=== PATIENT | male | born 1950 | race Caucasian/White ===

== ENCOUNTER → 2018-11-13 | Outpatient (CLI) | payer MEDICARE, OTHER ==
--- NOTE | 2018-11-13 18:32 | CT ---
EXAMINATION TYPE: CT shoulder RT wo con DATE OF EXAM: 11/13/2018 COMPARISON: None HISTORY: Right shoulder pain CT DLP: 350 mGycm Automated exposure control for dose reduction was used. TECHNIQUE: Axial images at 2 mm thick sections. Reconstructed images in the coronal and sagittal plan es. 3-D reconstructed images performed on a separate computer by the technologist are presented. FINDINGS: Osteoarthritic degenerative changes at the lateral humeral junction. There is loss of joint space. Hu meral head spurring is present. No elevation of the humerus in relation to the acromion is evident. T here is acromioclavicular joint hypertrophy. No acute fractures are evident. There appears to be complete loss of the anterior articular cartilage within the glenohumeral joint space. Calcification is noted within the joint space anteriorly. Small joint effusion may be present. Portion of the right apex within the field of view appears clear IMPRESSION: 1. ADVANCED OSTEOARTHRITIC DEGENERATIVE CHANGE RIGHT SHOULDER. 2. THERE ARE SOME DEGENERATIVE CHANGES AT THE ACROMION. 3. NO OBVIOUS ROTATOR CUFF TEAR IDENTIFIED. 4. SUSPECTED EFFUSION. SOME INTRA-CAPSULAR ILL-DEFINED CALCIFICATIONS ARE PRESENT ANTERIORLY.
== END ==
LOC: RADCTMAIN 11:59
PROVIDERS: ATTEND Orthopaedic Surgery Sports Medicine
DX: Z01.818 Encounter for other preprocedural examination (principal); M19.011 Primary osteoarthritis, right shoulder; R93.7 Abnormal findings on diagnostic imaging of other parts of musculoskeletal system; M25.811 Other specified joint disorders, right shoulder

== ENCOUNTER → 2018-12-29 | Outpatient (CLI) | payer MEDICARE, OTHER | END | disposition home or self-care (01) | LOC: LABWHC1 14:18 | PROVIDERS: ATTEND Orthopaedic Surgery Sports Medicine | DX: Z01.812 Encounter for preprocedural laboratory examination (principal) | CPT/HCPCS: 87070 ==

== ENCOUNTER 2019-01-06 14:29 | Inpatient (IN) | payer MEDICARE, OTHER ==
[2019-01-05 08:44] VITALS: BMI 28.1
[~2019-01-06 14:29] MED LIST: ACETAMINOPHEN TAB 500 MG TAB PO ONE; DEXAMETHASONE SOD PHOSPHATE 10 MG/ML 1 ML VIAL IV ONE; GABAPENTIN 300 MG CAP PO ONE; HYDROmorphone 0.5 MG/0.5 ML SYRINGE IVP PRN; MELOXICAM 7.5 MG TAB PO ONE; MIDAZOLAM 2 MG/2 ML VIAL IV PRN; ONDANSETRON 4 MG/2 ML VIAL IVP ONE; TRANEXAMIC ACID 1,000 MG in SODIUM CHLORIDE 0.9% 100 ML IVPB ONE
[2019-01-06] MEDS: LACTATED RINGERS 1,000 ML IV SCH ×3 (15:31→20:01)
--- NOTE | 2019-01-06 15:37 | P.ANPRN ---
Procedure Note - Anesthesia - Nerve Block Performed Right Interscalene Single Time Out Performed: Yes Date of Procedure: 01/06/19 Procedure Start Time: 15:20 Procedure Stop Time: 15:24 Location of Patient: PreOp Indication: Acute Post-Operative Pain, Analgesia, Requested by Surgeon Sedation Type: Sedate with meaningful contact maintained Preparation: Sterile Prep Position: Supine Catheter: None Needle Types: Pajunk Needle Gauge: 21 Ultrasound used to visualize needle placement: Yes Ultrasound used to observe medication spread: Yes Injectate: 0.5% Ropivacaine (see comment for volume) (20cc with 4mg dexamethasone) Blood Aspirated: No Pain Paresthesia on Injection Noted: No Resistance on Injection: Normal Image Stored and Saved: Yes Events: Uneventful and Well Tolerated
[2019-01-06] MEDS ORDERED: PHENYLEPHRINE-0.9% NACL SYG 1 MG/10 ML SYRINGE ONE (15:39)
[2019-01-06] MEDS ORDERED: SUCCINYLCHOLINE CHLORIDE 100 MG/5 ML SYR IV ONE (15:39)
[2019-01-06] MEDS ORDERED: NEOSTIGMINE 1 MG/ML 10 ML VIAL ONE (15:39)
[2019-01-06] MEDS ORDERED: ePHEDrine SULFATE/0.9% NACL/PF 50 MG/5 ML SYRINGE IV ONE (15:39)
[2019-01-06] MEDS ORDERED: LIDOCAINE 1% INJ 10MG/ML (20 ML MDV) ONE (15:39)
[2019-01-06] MEDS ORDERED: DEXAMETHASONE SOD PHOSPHATE 4 MG/ML 1 ML VIAL ONE (15:39)
[2019-01-06] MEDS ORDERED: GLYCOPYRROLATE 0.2 MG/ML 2 ML VIAL ONE (15:39)
[2019-01-06] MEDS ORDERED: ROCURONIUM BROMIDE 10 MG/ML 10 ML VIAL IV ONE (15:39)
[2019-01-06] MEDS ORDERED: PROPOFOL 10 MG/ML 20 ML VIAL IV ONE (15:39)
[2019-01-06] MEDS ORDERED: ROPIVACAINE 5 MG/ML 30 ML VIAL ONE (15:39)
[2019-01-06] MEDS ORDERED: TRANEXAMIC ACID 1,000 MG/10 ML VIAL ONE (15:39)
[2019-01-06] MEDS ORDERED: SODIUM CHLORIDE 0.9% 100 ML BAG ONE (15:39)
[2019-01-06] MEDS ORDERED: LACTATED RINGERS 1,000 ML IV ONE ×2 (15:43→17:14)
[2019-01-06 15:44] LABS: Appearance,Urine Clear (Clear); Bilirubin,Urine Negative (Negative); Blood,Urine Negative (Negative); Color,Urine Yellow; Glucose,Urine (UA) Negative (Negative); Ketones,Urine Negative (Negative); Leukocyte Esterase,Urine Negative (Negative); Nitrite,Urine Negative (Negative); Protein,Urine Negative (Negative); Specific Gravity,Urine 1.022 (1.001-1.035); Urobilinogen,Urine <2.0 mg/dL (<2.0)
[2019-01-06] MEDS ORDERED: VANCOMYCIN 1,000 MG VIAL MISCELLANE ONE (17:40)
[2019-01-06] MEDS ORDERED: ceFAZolin 3,000 MG in SODIUM CHLORIDE 0.9% IRRIGATIO 3,000 ML IRRIGATION ONE (17:59)
[2019-01-06] MEDS ORDERED: diphenhydrAMINE 25 MG CAP PO PRN (18:17)
[2019-01-06] MEDS ORDERED: METOCLOPRAMIDE 5 MG/ML 2 ML VIAL IVP PRN (18:17)
[2019-01-06] MEDS ORDERED: TEMAZEPAM 15 MG CAP PO PRN (18:17)
[2019-01-06] MEDS ORDERED: HYDROmorphone 0.5 MG/0.5 ML SYRINGE IVP PRN ×3 (18:17)
[2019-01-06] MEDS ORDERED: hydrOXYzine PAMOATE 25 MG CAP PO PRN (18:17)
[2019-01-06] MEDS ORDERED: SENNOSIDES-DOCUSATE SODIUM 1 EACH TAB PO PRN (18:17)
[2019-01-06] MEDS ORDERED: HYDROcodone/APAP 10-325MG 1 EACH TAB PO PRN ×2 (18:21)
--- NOTE | 2019-01-06 19:08 | XR ---
EXAMINATION TYPE: XR shoulder limited RT DATE OF EXAM: 01/06/2019 COMPARISON: NONE HISTORY: Postop shoulder surgery TECHNIQUE: Single view FINDINGS: There is right shoulder prosthesis. Components are in anatomic position. IMPRESSION: No complicating process seen.
[2019-01-07] MEDS: LACTATED RINGERS 1,000 ML IV SCH (03:51)
--- NOTE | 2019-01-07 07:44 | OP ---
OPERATIVE REPORT DATE OF PROCEDURE: 01/06/2019. SURGEON: Estevan Bey M.D. IMMUNOPATHOLOGIST: John GARSIA. PREOPERATIVE DIAGNOSIS: Right shoulder osteoarthrosis. POSTOPERATIVE DIAGNOSIS: Right shoulder osteoarthrosis. OPERATION PERFORMED: Right total shoulder arthroplasty. ANESTHESIA: General endotracheal. ESTIMATED BLOOD LOSS: 300 mL. DRAINS: 1 deep drain. COMPLICATIONS: None apparent. DISPOSITION: Postanesthesia care unit. INDICATIONS: Mr. Doran is a very pleasant 68-year-old gentleman with long-standing right shoulder pain. Workup including x-rays revealed advanced osteoarthrosis of the right shoulder. At this point, he feels as if he has failed conservative management and would like to proceed with operative intervention. Risks of procedure were discussed with him in detail. These risks include, but are not limited to risk of infection, nerve damage, bleeding, pain, instability in the shoulder, loosening of the implants and deep infection. There is also risk of deep vein thrombosis which could lead to fatal pulmonary embolism. The patient understood the risks. All of his questions with regards to the risks of the procedure were answered to his satisfaction. Appropriate informed consent was obtained. DESCRIPTION OF PROCEDURE: Patient identified in preoperative holding area. Surgical sites marked by both the patient and myself. He was given 2 g of Ancef IV for prophylactic purposes. He was then transferred to the operative suite. He was placed supine on the operative table. A general anesthetic was then administered, dosed per the anesthesia department without apparent complication. Examination under anesthesia was then performed of the right shoulder. He had elevation to 130 degrees. External rotation at the side was to 30 degrees. The patient was placed into the beach chair position well-padded in preparation for surgery. Great care was taken to ensure that his cervical spine was in neutral alignment well-padded and maintained that way throughout the operative procedure. Great care was also taken to ensure that his legs were appropriately padded as well. The patient's right upper extremity was then prepped and draped in usual sterile fashion. Standard surgical pause undertaken to ensure that we were operating on the correct site and that appropriate preop antibiotics were given. All staff in the room in agreement and we proceeded. A planned incision starting at the level of the clavicle and extending distally over the deltopectoral interval approximately 1 cm lateral to the coracoid was marked with a surgical pen. The incision was then made with a 10 blade scalpel. Dissection carried down sharply to the deltoid fascia. The deltopectoral interval was identified at the level of the clavicle. A small band retractor was then placed onto the proximal deltoid. I then released the deltoid fascia on the lateral aspect of the cephalic vein. The vein was preserved and left in its bed medially. The cephalic vein was protected throughout the entire case. I then identified the clavipectoral fascia. It was incised proximally to the level of the coracoacromial ligament. The coracoacromial ligament was left intact. I then used my finger to spread the interval between the conjoint tendon and the subscapularis. I felt for the axillary nerve which was readily palpable. I then cleared the subacromial subdeltoid spaces of bursal and scar tissue. I then utilized a Quintana retractor to hold the deltoid and expose the humeral head. I then proceeded to release the subscapularis in the anterior inferior shoulder capsule. The rotator cuff was inspected. It was found to be intact. The rotator interval was identified. The course of the biceps tendon was also identified. I then released the rotator interval. It was released at the base of the coracoid and then out laterally. The subscapularis and the capsule were then released intratendinously. The subscapularis and capsule release extended distally in a lazy-S fashion approximately 1 cm medial to the biceps tendon. I then continued to release the capsule along the inferior neck in a vertical fashion to approximately the 6 o'clock position. Great care was taken to ensure that the capsule was always visualized as it released to avoid injuring the axillary nerve. Then brought the Brown speedometer inspector with the arm externally rotated and abducted. I continued to release the capsule inferomedially to the 4 o'clock position. The inferior osteophytes were now removed as well. This was done with a rongeur. I then proceeded with the preparation of the humerus. I removed all the goat's manzanares osteophytes. I then removed the subchondral plate from the superior aspect of the humeral head utilizing a large rongeur. I then utilized a starting reamer to gain access to the humeral canal. This was approximately 1 cm medial to the rotator cuff insertion and 1 cm posterior to the bicipital groove. I then prepared the humeral canal with hand reaming. I started with a 6 mm reamer and progressed incrementally in 1 mm increments until firm resistance was encountered. This was at 14 mm. The reamer handle was then left in place. I then utilized a humeral resection guide set at 30 degrees of retrotorsion. The cutting block was set approximately 1-2 mm above the insertion of the rotator cuff. I then proceeded to osteotomize the head with an oscillating saw. I removed the resection guide and then completed the osteotomy. I then proceeded with trial stem placement. I then broached the humeral canal starting with an 8 mm broach up to a 14 mm broach. The 14 mm trial stem was then left in place. I then proceeded with a trial reduction. I started with a 46 x 19 head. This seemed a little loose. I then increased to 46 x 21 x 50 head which seemed to fit very nicely. The head fit opposite the glenoid. The rotator cuff was not tented. Internal rotation was to 90 degrees. The elevation was 150 degrees and translation was 1/2 of the head in neutral rotation and 1/4 of the head inferiorly in 15-20 degrees of abduction. I then removed the trial head. The stem was then left in place. I then proceeded with exposure of the glenoid. At this point, I did release the biceps tendon. This was tenotomized at the level of the superior labrum. A bone hook was then used to pull the humerus out laterally. I then dissected the joint for loose bodies. He had multiple ostial cartilaginous loose bodies. At least 5. The largest was approximately 1/2 to 2 cm in diameter. These were in the subscapularis recess as well. The condition of the rotator cuff was again inspected. It was in excellent condition. The Bhattman retractor was then placed onto the posterior glenoid reamer. The arm was placed in approximately 80 degrees of abduction and in slight flexion on a Brown stand. I then proceeded to remove the hypertrophic labrum to definitively identify the actual glenoid. I then selected the size of the glenoid. A large size glenoid seemed to fit very nicely. I then utilized a starting drill to make the centering hole. I then proceeded to ream the glenoid fossa. This was done with a large size reamer. Very minimal reaming was done to preserve as much subcarinal bone as possible. There was a tiny bit of posterior and inferior loss. I preferentially took off slightly more anterior glenoid with the reaming. I then proceeded to place the glenoid drill holes. The peripheral drill holes were then placed and the center hole was also drilled as well. I then placed a trial size large glenoid and it fit very nicely onto the glenoid component and it fit very nicely onto the real glenoid. I then proceed with cementing. I [place] the wound in the bone. The drill holes were then packed with [employer] sponges. The cement was then mixed on the back table by the case management assistant. Drill holes were then packed with cement utilizing a 20 mL syringe. These were packed very tightly. A small amount of cement was then placed on the posterior aspect of the glenoid component. I then impacted the real glenoid component in place. It was a Biomet large-sized pegged glenoid component with Regenerex central peg. Excess cement was removed utilizing a [place] elevator. Pressure was held on the glenoid component until the cement had hardened. Then, removed the Bhattman retractor. I then proceeded with humeral component trial reduction with the glenoid. A 46 x 19 x 50 head was then placed back onto the stem. This was taken through a trial. This seemed a little loose. I then trialed with a 46 x 21 x 50 head. This fit very nicely. The rotator cuff was not tented. The elevation was 150 degrees, internal rotation at 90 degrees and translation was 1/2 of the head in neutral rotation, 1/4 the head in 15-20 degrees of abduction. I then had the community service representative open a 46 x 21 x 50 real head and a size 14 Biomet mini stem. The stem was then impacted into the canal in 30 degrees of retrotorsion. The real head was then impacted onto the stem. The shoulder was then reduced. I then proceeded with closure. The wound was again thoroughly irrigated with sterile saline solution with antibiotic added. The rotator interval was closed very tightly with #1 coated Vicryl. The subscapularis was then repaired with #2 interrupted FiberWire suture. Deep drain was then placed and brought out superiorly away from the incision. The wound was again thoroughly irrigated with sterile saline solution with antibiotic added. Approximately 500 mg of vancomycin powder was then placed deep. The deltopectoral interval was then closed with interrupted 0-Vicryl suture. The wound was again thoroughly irrigated with sterile saline solution with antibiotic added. The remaining 500 mg of vancomycin powder was then placed subcutaneously. The subcutaneous tissue was closed with 2-0 Vicryl interrupted suture. The skin was closed with a running 3-0 Quill suture. Dermabond was then applied to the incision. Sterile compressive dressing was then applied. The patient's right upper extremity was placed into a cyst and a shoulder immobilizer. All sponge and needle counts were deemed correct prior to closure. The patient tolerated procedure without apparent complication. He was transferred recovery room in stable condition. MMODL / IJN: [id number] /
[2019-01-07 08:04] VITALS: BP 114/73; PULSE 79; RESP 16; TEMP 97.5
[2019-01-07 08:13] LABS: Basophils % (A) 0 %; Eosinophils % (A) 0 %; HCT 44.9 % (39.0-53.0); HGB 14.8 gm/dL (13.0-17.5); Lymphocytes # (A) 0.7 k/uL (1.0-4.8); Lymphocytes % (A) 6 %; MCH 31.1 pg (25.0-35.0); MCHC 33.1 g/dL (31.0-37.0); Mean Platelet Volume 6.5; Monocytes # (A) 0.7 k/uL (0-1.0); Monocytes % (A) 6 %; Neutrophils # (A) 10.2 k/uL (1.3-7.7); Neutrophils % (A) 87 %; Platelet Count 257 k/uL (150-450); RBC 4.78 m/uL (4.30-5.90); RDW 12.8 % (11.5-15.5); WBC 11.7 k/uL (3.8-10.6)
--- NOTE | 2019-01-07 10:12 | P.DS ---
Providers Date of admission: 01/06/19 14:29 Expected date of discharge: 01/07/19 Attending physician: Estevan Bey Consults: 01/06/19 18:17 Consult Physician Routine Consulting Provider: Domingo Justice Consult Reason/Comments: post op medical management Do you want consulting provider notified?: Yes Primary care physician: Antione Mayeseldor - Discharge Diagnosis(es) (1) Primary osteoarthritis, right shoulder Current Visit: Yes Status: Acute (2) Status post total replacement of right shoulder Current Visit: Yes Status: Acute Hospital Course: This is a 68-year-old male who has history of severe degenerative arthritis of the right shoulder and presented to discuss surgical options. After discussion and consideration the patient elects to proceed with total shoulder arthroplasty. The pt is seen preoperatively by their family physician and cleared for surgery. The patient is admitted to [facility] on 01/06/2019 for total right shoulder arthroplasty by Dr. Estevan Bey. He is doing well postopera tively. Vital signs and hemoglobin are stable. The patient is able to get up out of bed independently and is ambulating without assistance. Pain is well controlled. The patient was seen and evaluated at bedside today and denies any new complaints. Dressing is clean dry and intact. Incision looks fine with no erythema or active drainage. Hemovac removed without difficulty. Arm is soft and nontender. The patient has full wrist and hand motion without difficulty. Patient's right upper extremity is neurovascular intact. Patient is orthopedically stable for discharge to home today. Please see med rec for accurate list of home medications. Pertinent Studies: Laboratory Tests 01/07/19 07:23 WBC 11.7 H RBC 4.78 Hgb 14.8 Neutrophils # 10.2 H Lymphocytes # 0.7 L Patient Condition at Discharge: Stable Plan - Discharge Summary Discharge Rx Participant: Yes New Discharge Prescriptions: New Docusate [Colace] 100 mg PO BID #60 capsule HYDROcodone/APAP 10-325MG [[place] 10-325] 1 - 2 tab PO Q4-6H PRN #50 tab PRN Reason: Pain No Action Glucosamine-Chondr 500-400Mg 1 each PO DAILY Ascorbic Acid [Vitamin C] 500 mg PO DAILY Saw Effort 160 mg PO DAILY Discharge Medication List Ascorbic Acid [Vitamin C] 500 mg PO DAILY 01/05/19 [History] Glucosamine-Chondr 500-400Mg 1 each PO DAILY 01/05/19 [History] Saw Eff[place] 160 mg PO DAILY 01/05/19 [History] Docusate [Colace] 100 mg PO BID #60 capsule 01/07/19 [Rx] HYDROcodone/APAP 10-325MG [[place] 10-325] 1 - 2 tab PO Q4-6H PRN #50 tab 01/07/19 [Rx] Follow up Appointment(s)/Referral(s): Estevan Bey MD [STAFF PHYSICIAN] - 10 Days Activity/Diet/Wound Care/Special Instructions: Sling for comfort. Daily dressing changes, keep incision clean and dry May shower over incision in 2 days after surgery. Follow up with Dr. Bey in 10 days. Call [facility] with questions or concerns [phone] Discharge Disposition: HOME WITH HOME HEALTH SERVICES
--- NOTE | 2019-01-07 22:34 | P.CONS ---
History of Present Illness - Reason for Consult Consult date: 01/07/19 Medical management Requesting physician: Estevan Bey - Chief Complaint Right shoulder pain - History of Present Illness Consultation: This is a very pleasant 68-year-old patient of Dr. Spenser Olmstead. Patient is at chronic right shoulder pain for a long time getting progressively worse. Worse with activity. Better with rest. Patient has tried conservative management including physical therapy and manipulative therapy. Did not help. Her symptoms were getting worse and decided to proceed with surgery. Patient has undergone right total shoulder arthroplasty. Pain is better this morning with pain medication. Good sensation in the fingers. No nausea vomiting. Denies any cardiac history. Did tolerate his breakfast. Review of systems: GEN.: None EYES: None HEENT: None NECK: None RESPIRATORY: None CARDIOVASCULAR: None GASTROINTESTINAL: None GENITOURINARY: None MUSCULOSKELETAL: Joint pains LYMPHATICS: None HEMATOLOGICAL: None PSYCHIATRY: None NEUROLOGICAL: None Social history: Patient does smoke in the past. Alcohol occasionally. . His a golf pro and also teaches golf. Physical examination: VITAL SIGNS: 97.5, 69, 16, 11 4/73, 96% room air GENERAL: BMI 29.2, sitting up in a chair, comfortable. EYES: Pupils equal. Conjunctiva normal. HEENT: External appearance of nose and ears normal, oral cavity grossly normal. NECK: JVD not raised; masses not palpable. HEART: First and second heart sounds are normal; no edema. LUNGS: Respiratory rate normal; clear to auscultation. ABDOMEN: Soft, nontender, liver spleen not palpable, no masses palpable. PSYCH: Alert and oriented x3; mood and affect normal. NEUROLOGICAL: Cranial nerves grossly intact; no facial asymmetry, power and sensation grossly intact. LYMPHATICS: No lymph nodes palpable in the axilla and neck MUSCULAR skeletal: Right arm in a sling. Sensation and motion presented to the right hand. Dressing over the right shoulder Investigations: -White count 11.7 hemoglobin 14.8 platelets 257 UA negative Assessment: -Right total shoulder arthroplasty -Primary osteoarthritis -Leukocytosis, likely reactive, no clinical evidence of infection Plan: Patient's pain is controlled. Doing well. Should follow-up with his PCP or discharge. Care was discussed with the patient. Questions were answered. Thank you Dr. Bey Past Medical History Past Medical History: Hyperlipidemia, Hypertension, Osteoarthritis (OA) Additional Past Medical History / Comment(s): KIDNEY STONE History of Any Multi-Drug Resistant Organisms: None Reported Past Surgical History: Adenoidectomy, Tonsillectomy Additional Past Surgical History / Comment(s): COLONOSCOPY X2, Right total shoulder- 01-06-2019 Past Anesthesia/Blood Transfusion Reactions: No Reported Reaction Past Psychological History: No Psychological Hx Reported Smoking Status: Former smoker Past Alcohol Use History: Occasional Additional Past Alcohol Use History / Comment(s): STARTED SMOKING AT AGE 15 QUIT IN 1985 SMOKED 1/2PPD Past Drug Use History: None Reported - Past Family History Mother Family Medical History: Dementia Sister(s) Family Medical History: Cancer Additional Family Medical History / Comment(s): PANCREAS- CANCER Father Family Medical History: Cancer Additional Family Medical History / Comment(s): LUNG AND KIDNEY CANCER Medications and Allergies Home Medications Medication Instructions Recorded Confirmed Type Ascorbic Acid [Vitamin C] 500 mg PO DAILY 01/05/19 01/05/19 History Glucosamine-Chondr 500-400Mg 1 each PO DAILY 01/05/19 01/05/19 History Saw [place] 160 mg PO DAILY 01/05/19 01/05/19 History Docusate [Colace] 100 mg PO BID #60 capsule 01/07/19 Rx HYDROcodone/APAP 10-325MG [[place] 1 - 2 tab PO Q4-6H PRN #50 tab 01/07/19 Rx 10-325] Allergies Allergy/AdvReac Type Severity Reaction Status Date / Time No Known Allergies Allergy Verified 01/06/19 14:38 Physical Exam Vitals: Vital Signs Temp Pulse Pulse Resp BP BP Pulse Ox 01/07/19 07:15 97.5 F L 79 16 114/73 96 01/07/19 00:10 97.4 F L 107 H 15 121/88 95 01/06/19 22:10 97.5 F L 109 H 137/81 94 L 01/06/19 21:39 111 H 143/96 91 L 01/06/19 21:24 92 146/98 93 L 01/06/19 21:08 105 H 142/96 92 L 01/06/19 20:40 117 H 146/90 91 L 01/06/19 20:24 99 149/95 91 L 01/06/19 20:08 93 144/89 90 L 01/06/19 19:01 77 18 144/84 94 L 01/06/19 18:46 77 18 141/84 95 01/06/19 18:31 76 18 140/84 93 L 01/06/19 18:14 97.1 F L 78 14 137/80 96 01/06/19 14:49 98.0 F 68 17 168/86 98 Intake and Output 01/06/19 01/07/19 01/07/19 22:59 06:59 14:59 Intake Total 2231 960 Output Total 300 Balance 1931 960 Intake: IV 1751 Oral 480 960 Output: Estimated Blood Loss 300 Other: Voiding Method Toilet Toilet Toilet # Voids 2 2 Weight 84.453 kg Results CBC & Chem 7: 01/07/19 07:23 Labs: Abnormal Lab Results - Last 24 Hours (Table) 01/07/19 Range/Units 07:23 WBC 11.7 H (3.8-10.6) k/uL Neutrophils # 10.2 H (1.3-7.7) k/uL Lymphocytes # 0.7 L (1.0-4.8) k/uL
== END 2019-01-07 12:45 | disposition home or self-care (01) | DRG 483 ==
LOC: 2ORMAIN 14:29 → 4SSUR 18:55
PROVIDERS: ADMIT Orthopaedic Surgery Sports Medicine; ATTEND Orthopaedic Surgery Sports Medicine
PROC: 0RRJ0JZ Replacement of Right Shoulder Joint with Synthetic Substitute, Open Approach (ICD-10-PCS; principal; 2019-01-06 16:05)
DX: M19.011 Primary osteoarthritis, right shoulder (principal); M75.121 Complete rotator cuff tear or rupture of right shoulder, not specified as traumatic; M75.41 Impingement syndrome of right shoulder; M65.811 Other synovitis and tenosynovitis, right shoulder; D72.829 Elevated white blood cell count, unspecified; E78.5 Hyperlipidemia, unspecified; I10 Essential (primary) hypertension; R35.1 Nocturia; R97.20 Elevated prostate specific antigen [PSA]; Z79.899 Other long term (current) drug therapy; Z87.442 Personal history of urinary calculi; Z87.891 Personal history of nicotine dependence; Z98.890 Other specified postprocedural states; Z88.4 Allergy status to anesthetic agent; Z81.8 Family history of other mental and behavioral disorders; Z80.51 Family history of malignant neoplasm of kidney; Z80.1 Family history of malignant neoplasm of trachea, bronchus and lung; Z80.0 Family history of malignant neoplasm of digestive organs; Z82.49 Family history of ischemic heart disease and other diseases of the circulatory system
CPT/HCPCS: 64415; 81003; 85025; 88300

== ENCOUNTER → 2021-02-05 | Outpatient (CLI) | payer MEDICARE, OTHER ==
[2021-02-05 14:58] LABS: HCT 44.9 % (39.0-53.0); HGB 14.7 gm/dL (13.0-17.5); MCH 31.9 pg (25.0-35.0); MCHC 32.7 g/dL (31.0-37.0); MCV 97.3 fL (80.0-100.0); Mean Platelet Volume 7.4; Platelet Count 216 k/uL (150-450); RBC 4.62 m/uL (4.30-5.90); RDW 12.8 % (11.5-15.5); WBC 4.5 k/uL (3.8-10.6)
[2021-02-05 15:11] LABS: Total Bilirubin 1.5 mg/dL (0.2-1.3); Total Protein 6.9 g/dL (6.3-8.2)
[2021-02-05 15:45] LABS: Partial Thromboplastin Time 24.7 sec (22.0-30.0)
[2021-02-05 15:57] LABS: Appearance,Urine Clear (Clear); Bilirubin,Urine Negative (Negative); Blood,Urine Negative (Negative); Color,Urine Yellow; Glucose,Urine (UA) Negative (Negative); Ketones,Urine Negative (Negative); Leukocyte Esterase,Urine Negative (Negative); Nitrite,Urine Negative (Negative); Protein,Urine Negative (Negative); Specific Gravity,Urine 1.018 (1.001-1.035); Urobilinogen,Urine <2.0 mg/dL (<2.0)
== END | disposition home or self-care (01) ==
LOC: LABPAT 13:47
PROVIDERS: ATTEND Orthopaedic Surgery
DX: Z01.812 Encounter for preprocedural laboratory examination (principal); M16.12 Unilateral primary osteoarthritis, left hip
CPT/HCPCS: 36415; 80053; 81003; 85027; 85610; 85730; 87070

== ENCOUNTER 2021-02-13 05:39 | Day surgery (SDC) | payer MEDICARE, OTHER ==
[2021-02-06 10:53] VITALS: BMI 26.6
[~2021-02-13 05:39] MED LIST changes: -ACETAMINOPHEN TAB 500 MG TAB PO ONE; +ACETAMINOPHEN TAB 500 MG TAB PO PRN; -DEXAMETHASONE SOD PHOSPHATE 10 MG/ML 1 ML VIAL IV ONE; -GABAPENTIN 300 MG CAP PO ONE; +GABAPENTIN 300 MG CAP PO PRN; -HYDROmorphone 0.5 MG/0.5 ML SYRINGE IVP PRN; -MELOXICAM 7.5 MG TAB PO ONE; +MELOXICAM 7.5 MG TAB PO PRN; -MIDAZOLAM 2 MG/2 ML VIAL IV PRN; -ONDANSETRON 4 MG/2 ML VIAL IVP ONE; -TRANEXAMIC ACID 1,000 MG in SODIUM CHLORIDE 0.9% 100 ML IVPB ONE; +TRANEXAMIC ACID 1,000 MG in SODIUM CHLORIDE 0.9% 100 ML IVPB PRN
[2021-02-13] MEDS ORDERED: LACTATED RINGERS 1,000 ML IV SCH (05:45)
[2021-02-13] MEDS ORDERED: DEXAMETHASONE SOD PHOSPHATE 4 MG/ML 1 ML VIAL IV ONE (05:45)
[2021-02-13] MEDS ORDERED: ONDANSETRON 4 MG/2 ML VIAL IVP ONE ×2 (05:45→10:28)
[2021-02-13] MEDS ORDERED: TRANEXAMIC ACID 1,000 MG/10 ML VIAL ONE (07:05)
[2021-02-13] MEDS ORDERED: PROPOFOL 10 MG/ML 20 ML VIAL IV ONE (07:05)
[2021-02-13] MEDS ORDERED: ROCURONIUM 10 MG/ML (5 ML VIAL) IV ONE (07:05)
[2021-02-13] MEDS ORDERED: fentaNYL (PF) 50 MCG/ML 2 ML AMP ONE (07:05)
[2021-02-13] MEDS ORDERED: SUCCINYLCHOLINE CHLORIDE 100 MG/5 ML SYR IV ONE (07:05)
[2021-02-13] MEDS ORDERED: GLYCOPYRROLATE 0.2 MG/ML 2 ML VIAL ONE (07:05)
[2021-02-13] MEDS ORDERED: SODIUM CHLORIDE 0.9% 100 ML BAG ONE (07:05)
[2021-02-13] MEDS ORDERED: NEOSTIGMINE 1 MG/ML 10 ML VIAL ONE (07:05)
[2021-02-13] MEDS ORDERED: KETOROLAC 15 MG/ML 1 ML VIAL ONE (07:05)
[2021-02-13] MEDS ORDERED: MIDAZOLAM 2 MG/2 ML VIAL ONE (07:05)
[2021-02-13] MEDS ORDERED: HYDROmorphone (PF) 1 MG/ML ONE (07:05)
[2021-02-13] MEDS ORDERED: ROPIVACAINE 5 MG/ML 30 ML VIAL MISCELLANE ONE ×2 (07:33→08:16)
--- NOTE | 2021-02-13 08:25 | P.OP ---
Date of Procedure: 02/13/21 Preoperative Diagnosis: Severe Osteoarthritis left hip Postoperative Diagnosis: Severe osteoarthritis left hip Procedure(s) Performed: Total of arthroplasty with a direct anterior approach Implants: [employer] Nephew Polarstem standard size 5 Web[employer] Nephew R3, 3 hole hemispherical acetabular shell, 52 mm Web[employer]hew Reflection 6.5 mm cancellus screw, 20 mm 2 [employer]hew R3, XLPE 20 acetabular liner Web[employer] Nephew Oxinium femoral head 36 m, +8 All components were press-fit. The articulation is Oxinium on polyethylene. Anesthesia: GETA Surgeon: Carlos Ricks Packing And Wrapping Supervisor #1: Chiara Hoffman Estimated Blood Loss (ml): 500 Pathology: other (Femoral head) Condition: stable Disposition: PACU Indications for Procedure: After failure of conservative treatment we discussed the surgical and nonsurgical treatment options at length. Patient wishes to proceed with a total hip arthroplasty with a direct anterior approach. Complications specific to this procedure were discussed at length, including but not limited to infection, leg length discrepancy, dislocation, nerve injury, and fracture. Covid-19 was also discussed at length with the patient, and they are aware of the current policies and procedures. The patient was given the option of delaying surgery, but they elect to proceed knowing these risks. Patient is aware of all these complications and informed consent was obtained Operative Findings: The operative findings are consistent with severe osteoarthritis of the left hip Description of Procedure: Patient was seen and evaluated in the preoperative area and the consent was reviewed. The operative site was marked with a skin marker. The patient was then brought to the operating room and given preoperative antibiotics intravenou sly. 1 g of Tranexamic acid was also given intravenously. A general anesthetic was administered by the anesthesia department. The patient was then placed on the [place] table with the bony prominences well-padded. The hip area was then prepped with a ChloraPrep solution and draped in the usual sterile fashion. A universal timeout was then performed, which confirmed the patient's name, surgical site, ALLERGIES, and procedure being performed on the consent. Next the incision site was located at 1 cm distal and 2 cm lateral to the anterior superior iliac spine. The skin and subcutaneous tissues were sharply incised. Incision was carefully dissected down to the fascia overlying the tensor fascia philip muscle. This fascia was then incised in line with the incision. Care was taken to stay laterally in order to avoid injuring the lateral femoral cutaneous nerve. Next, using blunt finger dissection, the tensor fascia philip muscle was dissected off its investing fascia. The muscle was then carefully retracted laterally with a cobra retractor over the lateral neck of the femur. Next, the circumflex vessels were identified and cauterized using the AquaMantis device. The anterior hip capsule was then exposed. The capsule was then opened and an inverted T fashion. Cobra retractors were then placed intracapsularly. The retractors were maintained intracapsular throughout the procedure. The proximal femur was then visualized. Fluoroscopic x-rays were then taken in order to evaluate the preoperative leg lengths. A small amount of traction was placed on the leg. The femoral neck was then osteotomized at the appropriate level above the lesser trochanter. A small wedge of bone was then removed from the remaining femoral head. Next, using a corkscrew the femoral head was removed from the acetabulum. On gross visual inspection, the femoral head had complete loss of articular cartilage and multiple periarticular osteophytes. The femoral head was then measured. Attention was then turned to the acetabulum. The acetabulum was exposed and any remaining labrum was excised. Sequential reaming of the acetabulum was performed using fluoroscopic guidance until there was a good bed of bleeding cancellus bone. When the appropriate size was reached, a trial was then placed. The position and fit of the trial was checked with fluoroscopy. The trial was then removed. Then, using fluoroscopic guidance, the final implant was impacted at 20 of anteversion and 40 of abduction, and fully seated in the acetabulum. 2 screws were then placed in the acetabulum. Again fluoroscopy was used to check position of the screws. Next, the liner was then impacted, with a 20 elevated liner located in the anterior superior quadrant. Component locking was confirmed. Attention was then directed to the femur. With the aid of the [place] table, the femur was externally rotated to approximately 130, extended, and adducted under the opposite leg. A side hook was then placed under the proximal femur, and the side hook elevator was used to elevate the proximal femur while releasing the capsule. Retractors were then placed. A capsular release was performed, as well as a release of the conjoined tendon, which afforded excellent visualization of the proximal femur. Next, a box osteotome was used to lateralize the proximal femur. A merchandise appraiser was then used to locate the femoral canal. Sequential broaching was then performed with appropriate size which afforded excellent fixation in the proximal femur. A trial was then placed with appropriate head and neck, and the hip was gently reduced with the aid of the [place] table. Fluoroscopy was then used to check position of the components, as well as to ensure equal leg lengths. The hip was then gently dislocated and the trials were then removed. Final implants were then impacted and the hip was again reduced. Final fluoroscopic x-rays confirmed that the components were in anatomic position, as well as equal leg lengths. The hip was also taken through range of motion, and found to be stable. The hip was then copiously irrigated with antibiotic solution with pulsatile lavage. The hip was then irrigated with Irrisept solution. The soft tissues were then injected with a ropivacaine solution. A second dose of 1 g of Tranexamic acid was also given intravenously. Any blood collected by Cell Saver was then returned to the patient at this time. The fascia was then closed with 2-0 strata fix suture. The subcutaneous tissue was closed with 3-0 Vicryl. The subcuticular tissue was closed with 3-0 strata fix suture. The skin was then closed with Exofin skin glue. After the glue and dried, and Optifoam silver impregnated dressing was applied. The patient was then transferred to the recovery room in stable condition. The therapeutic assistant SE Alvarez was required due to the complexity of surgery, and the need for skilled operating room surgical technician for positioning, draping, exposure, retraction, and closure of the wound.
[2021-02-13] MEDS ORDERED: LACTATED RINGERS 1,000 ML IV ONE (08:28)
--- NOTE | 2021-02-13 08:41 | FL ---
EXAMINATION TYPE: FL guidance operating room, XR Hip Limited LT DATE OF EXAM: 02/13/2021 CLINICAL HISTORY: Hip pain and osteoarthritis. TECHNIQUE: Fluoroscopy. COMPARISON: None. FINDINGS: Fluoroscopic guidance was provided during hip replacement procedure performed by Dr. Kasandra nagy. A total of 53 seconds of fluoroscopic time was utilized during the procedure and 2 spot images was acquired. Intraoperative images show metallic hardware from left hip arthroplasty satisfactory in position on f rontal projection. IMPRESSION: As Above.
[2021-02-13 08:49] VITALS: TEMP 97.6
[2021-02-13] MEDS ORDERED: ONDANSETRON 4 MG/2 ML VIAL IVP PRN (08:54)
[2021-02-13] MEDS ORDERED: NALOXONE 0.4 MG/ML 1 ML VIAL IV PRN (08:54)
[2021-02-13] MEDS ORDERED: HYDROmorphone 0.2 MG/1 ML SYRINGE IVP PRN (08:54)
[2021-02-13] MEDS ORDERED: HYDROmorphone 0.5 MG/0.5 ML SYRINGE IVP PRN ×2 (08:54)
[2021-02-13] MEDS ORDERED: HYDROcodone/APAP 7.5-325MG 1 EACH TAB PO PRN ×2 (08:58)
[2021-02-13] MEDS ORDERED: SODIUM CHLORIDE 0.9% 1,000 ML IV SCH (09:00)
[2021-02-13] MEDS: HYDROmorphone 0.5 MG/0.5 ML SYRINGE IVP PRN ×4 (09:06→09:45)
--- NOTE | 2021-02-13 09:42 | XR ---
EXAMINATION TYPE: XR Hip Limited LT DATE OF EXAM: 02/13/2021 CLINICAL HISTORY: Left hip pain and osteoarthritis. TECHNIQUE: Single AP portable view of the left hip is obtained immediately postoperatively. COMPARISON: None. FINDINGS: Metallic hardware from left hip arthroplasty is seen and appears satisfactory in alignment and position. There is evidence of recent surgery with subcutaneous gas noted surrounding prosthesis . IMPRESSION: Metallic hardware from left hip arthroplasty is satisfactory in position.
[2021-02-13] MEDS ORDERED: METOCLOPRAMIDE 5 MG/ML 2 ML VIAL ONE (12:58)
[2021-02-13] MEDS ORDERED: SCOPOLAMINE 1.5MG/72HR PATCH TRANSDERM ONE (13:01)
[2021-02-13] MEDS ORDERED: METOCLOPRAMIDE 5 MG/ML 2 ML VIAL IVP ONE (13:01)
[2021-02-13 14:53] VITALS: BP 130/88; PULSE 68; RESP 18
== END 2021-02-13 15:40 | disposition home health service (06) ==
LOC: OR 05:39
PROVIDERS: ATTEND Orthopaedic Surgery
DX: M16.12 Unilateral primary osteoarthritis, left hip (principal); I10 Essential (primary) hypertension; Z97.3 Presence of spectacles and contact lenses; Z98.890 Other specified postprocedural states; Z87.891 Personal history of nicotine dependence; Z20.822 Contact with and (suspected) exposure to COVID-19; R35.1 Nocturia; R97.20 Elevated prostate specific antigen [PSA]; Z80.0 Family history of malignant neoplasm of digestive organs; Z82.49 Family history of ischemic heart disease and other diseases of the circulatory system; Z80.51 Family history of malignant neoplasm of kidney; Z79.899 Other long term (current) drug therapy; Z88.4 Allergy status to anesthetic agent
CPT/HCPCS: 97110; 97161; 88300; 87635; 73501; 27130; C1776; J2250; J1100; J2710; J2765; J0690; J2405; J3010; J1170 ×2; J2795; J1885; J0330; J2704; J1790; 86850; 86900; 86901

== ENCOUNTER → 2021-07-30 | Outpatient (CLI) | payer MEDICARE, OTHER ==
[2021-07-30 14:06] LABS: Partial Thromboplastin Time 24.5 sec (22.0-30.0)
[2021-07-30 18:43] LABS: African American GFR (CKD) 99.9 (60.0-200.0); Albumin 4.1 g/dL (3.8-4.9); Albumin/Globulin Ratio 1.86 (1.60-3.17); Anion Gap 7.7 mmol/L (10.00-18.00); BUN/Creat Ratio 19.78 Ratio (12.00-20.00); Blood Urea Nitrogen 17.8 mg/dL (9.0-27.0); Calcium 9.3 mg/dL (8.7-10.3); Carbon Dioxide 27.3 mmol/L (20.0-27.5); Globulin 2.2 g/dL (1.6-3.3); Non-African American GFR(CKD) 86.2 (60.0-200.0); Potassium 4.4 mmol/L (3.5-5.5); Total Bilirubin 1.1 mg/dL (0.30-1.20); Total Protein 6.3 g/dL (6.2-8.2)
[2021-07-30 18:53] LABS: Appearance,Urine Clear (Clear); Bilirubin,Urine Negative (Negative); Blood,Urine Negative (Negative); Color,Urine Yellow (Yellow); HCT 39.1 % (39.6-50.0); Ketones,Urine Negative (Negative); MCH 30.2 pg (27.0-32.0); MCHC 33.2 g/dL (32.0-37.0); MCV 90.9 fL (80.0-97.0); Mean Platelet Volume 9.7 fL (9.5-12.2); NRBC Per 100 WBC 0 /100 WBCS (0.0-0.0); Nitrite,Urine Negative (Negative); Platelet Count 223 X 10*3/uL (140-440); Specific Gravity,Urine 1.012 (1.001-1.030); Urobilinogen,Urine 0.2 (0.2,1.0); WBC 5.69 X 10*3/uL (4.50-10.00)
== END | disposition home or self-care (01) ==
LOC: LABPAT 13:07
PROVIDERS: ATTEND Orthopaedic Surgery
DX: Z01.812 Encounter for preprocedural laboratory examination (principal)
CPT/HCPCS: 80053; 81003; 85027; 85610; 85730; 86850; 86900; 86901; 87070; 93005

== ENCOUNTER 2021-08-14 11:30 | Day surgery (SDC) | payer MEDICARE, OTHER ==
[~2021-08-14 11:30] MED LIST changes: +DEXAMETHASONE SOD PHOSPHATE 4 MG/ML 1 ML VIAL IV ONE; +MIDAZOLAM 2 MG/2 ML VIAL IV PRN; +ONDANSETRON 4 MG/2 ML VIAL IVP ONE; -TRANEXAMIC ACID 1,000 MG in SODIUM CHLORIDE 0.9% 100 ML IVPB PRN; +TRANEXAMIC ACID IN NACL,ISO-OS 1,000 MG in SALINE 1 100ML.BAG IVPB PRN
[2021-08-14] MEDS: LACTATED RINGERS 1,000 ML IV SCH (12:16)
[2021-08-14] MEDS ORDERED: MIDAZOLAM 2 MG/2 ML VIAL IVP ONE (12:38)
[2021-08-14] MEDS ORDERED: TRANEXAMIC ACID IN NACL,ISO-OS 1,000 MG/100 ML BAG ONE (14:06)
[2021-08-14] MEDS ORDERED: PROPOFOL 10 MG/ML 20 ML VIAL IV ONE (14:06)
[2021-08-14] MEDS ORDERED: NEOSTIGMINE 1 MG/ML 10 ML VIAL ONE (14:06)
[2021-08-14] MEDS ORDERED: LABETALOL 5 MG/ML VIAL MDV ONE (14:06)
[2021-08-14] MEDS ORDERED: HYDROmorphone (PF) 1 MG/ML ONE (14:06)
[2021-08-14] MEDS ORDERED: GLYCOPYRROLATE 0.2 MG/ML 2 ML VIAL ONE (14:06)
[2021-08-14] MEDS ORDERED: ROCURONIUM 10 MG/ML (5 ML VIAL) IV ONE (14:06)
[2021-08-14] MEDS ORDERED: fentaNYL (PF) 50 MCG/ML 2 ML AMP ONE (14:06)
[2021-08-14] MEDS ORDERED: SUCCINYLCHOLINE CHLORIDE 100 MG/5 ML SYR IV ONE (14:06)
[2021-08-14] MEDS ORDERED: MIDAZOLAM 2 MG/2 ML VIAL ONE (14:06)
[2021-08-14] MEDS ORDERED: ceFAZolin 1,000 MG in SODIUM CHLORIDE 0.9% 1,000 ML IRRIGATION ONE (14:15)
[2021-08-14] MEDS ORDERED: ROPIVACAINE 5 MG/ML 30 ML VIAL MISCELLANE ONE (14:36)
--- NOTE | 2021-08-14 15:30 | P.OP ---
Date of Procedure: 08/14/21 Preoperative Diagnosis: Severe osteoarthritis right hip Postoperative Diagnosis: Severe osteoarthritis right hip Procedure(s) Performed: Right total hip Arthroplasty with a direct anterior approach Implants: [employer] Nephew Polarstem standard size 5 Webber [employer] Nephew R3, 3 hole hemispherical acetabular shell, 52 mm Web[employer]hew Reflection 6.5 mm cancellus screw, 20 mm 2 Webber [employer]hew R3, XLPE 20 acetabular liner Web[employer]hew Oxinium femoral head 36 m, +4 All components were press-fit. The articulation is Oxinium on polyethylene. Anesthesia: GETA Surgeon: Carlos Ricks Horseback Excavator #1: Arelis Lynne Estimated Blood Loss (ml): 500 Pathology: other (Femoral head) Condition: stable Disposition: PACU Indications for Procedure: After failure of conservative treatment we discussed the surgical and nonsurgical treatment options at length. Patient wishes to proceed with a total hip arthroplasty with a direct anterior approach. Complications specific to this procedure were discussed at length, including but not limited to infection, leg length discrepancy, dislocation, nerve injury, and fracture. Covid-19 was also discussed at length with the patient, and they are aware of the current policies and procedures. The patient was given the option of delaying surgery, but they elect to proceed knowing these risks. Patient is aware of all these complications and informed consent was obtained Operative Findings: The operative findings are consistent with severe osteoarthritis of the right hip Description of Procedure: Patient was seen and evaluated in the preoperative area and the consent was reviewed. The operative site was marked with a skin marker. The patient was then brought to the operating room and given preoperative antibiotics intravenously. 1 g of Tranexamic acid was also given intravenously. A general anesthetic was administered by the anesthesia department. The patient was then placed on the [place] table with the bony prominences well-padded. The hip area was then prepped with a ChloraPrep solution and draped in the usual sterile fashion. A universal timeout was then performed, which confirmed the patient's name, surgical site, ALLERGIES, and procedure being performed on the consent. Next the incision site was located at 1 cm distal and 2 cm lateral to the anterior superior iliac spine. The skin and subcutaneous tissues were sharply incised. Incision was carefully dissected down to the fascia overlying the tensor fascia philip muscle. This fascia was then incised in line with the incision. Care was taken to stay laterally in order to avoid injuring the lateral femoral cutaneous nerve. Next, using blunt finger dissection, the tensor fascia philip muscle was dissected off its investing fascia. The muscle was then carefully retracted laterally with a cobra retractor over the lateral neck of the femur. Next, the circumflex vessels were identified and cauterized using the AquaMantis device. The anterior hip capsule was then exposed. The capsule was then opened and an inverted T fashion. Cobra retractors were then placed intracapsularly. The retractors were maintained intracapsular throughout the procedure. The proximal femur was then visualized. Fluoroscopic x-rays were then taken in order to evaluate the preoperative leg lengths. A small amount of traction was placed on the leg. The femoral neck was then osteotomized at the appropriate level above the lesser trochanter. A small wedge of bone was then removed from the remaining femoral head. Next, using a corkscrew the femoral head was removed from the acetabulum. On gross visual inspection, the femoral head had complete loss of articular cartilage and multiple periarticular osteophytes. The femoral head was then measured. Attention was then turned to the acetabulum. The acetabulum was exposed and any remaining labrum was excised. Sequential reaming of the acetabulum was performed using fluoroscopic guidance until there was a good bed of bleeding cancellus bone. When the appropriate size was reached, a trial was then placed. The position and fit of the trial was checked with fluoroscopy. The trial was then removed. Then, using fluoroscopic guidance, the final implant was impacted at 20 of anteversion and 40 of abduction, and fully seated in the acetabulum. 2 screws were then placed in the acetabulum. Again fluoroscopy was used to check position of the screws. Next, the liner was then impacted, with a 20 elevated liner located in the anterior superior quadrant. Component locking was confirmed. Attention was then directed to the femur. With the aid of the [place] table, the femur was externally rotated to approximately 130, extended, and adducted under the opposite leg. A side hook was then placed under the proximal femur, and the side hook elevator was used to elevate the proximal femur while releasing the capsule. Retractors were then placed. A capsular release was performed, as w ell as a release of the conjoined tendon, which afforded excellent visualization of the proximal femur. Next, a box osteotome was used to lateralize the proximal femur. A retail project merchandiser was then used to locate the femoral canal. Sequential broaching was then performed with appropriate size which afforded excellent fixation in the proximal femur. A trial was then placed with appropriate head and neck, and the hip was gently reduced with the aid of the [place] table. Fluoroscopy was then used to check position of the components, as well as to ensure equal leg lengths. The hip was then gently dislocated and the trials were then removed. Final implants were then impacted and the hip was again reduced. Final fluoroscopic x-rays confirmed that the components were in anatomic position, as well as equal leg lengths. The hip was also taken through range of motion, and found to be stable. The hip was then copiously irrigated with antibiotic solution with pulsatile lavage. The hip was then irrigated with Irrisept solution. The soft tissues were then injected with a ropivacaine solution. A second dose of 1 g of Tranexamic acid was also given intravenously. The fascia was then closed with 2-0 strata fix suture. The subcutaneous tissue was closed with 3-0 Vicryl. The subcuticular tissue was closed with 3-0 strata fix suture. The skin was then closed with Exofin skin glue. After the glue and dried, and Optifoam silver impregnated dressing was applied. The patient was then transferred to the recovery room in stable condition. The access services assistant Arelis Lynne NP was required due to the complexity of surgery, and the need for skilled clinical assistant for positioning, draping, exposure, retraction, and closure of the wound.
--- NOTE | 2021-08-14 15:52 | XR ---
Fluoroscopy History: TOTAL ANT HIP SURGERY RIGHT RT anterior hip with Dr. Ricks. 57 sec fluoro time. 3 images sent.
[2021-08-14] MEDS: HYDROmorphone 0.5 MG/0.5 ML SYRINGE IVP PRN ×3 (16:09→16:44)
--- NOTE | 2021-08-14 16:39 | FL ---
Fluoroscopy HISTORY: Hip replacement 57 seconds fluoroscopy time supplied to the referring clinician. 3 intraoperative C-arm images docum ent the procedure. See dictated report from orthopedic surgery.
--- NOTE | 2021-08-14 16:45 | XR ---
EXAMINATION TYPE: XR Hip Limited RT DATE OF EXAM: 08/14/2021 COMPARISON: 08/14/2021 HISTORY: Hip pain. Postop TECHNIQUE: Single view FINDINGS: There is right hip prosthesis. Components appear in good position. IMPRESSION: No complicating process seen.
[2021-08-14] MEDS ORDERED: LACTATED RINGERS 1,000 ML IV ONE ×2 (17:20)
[2021-08-14] MEDS ORDERED: ONDANSETRON 4 MG/2 ML VIAL IVP ONE (17:43)
[2021-08-14] MEDS ORDERED: ONDANSETRON 4 MG/2 ML VIAL IVP PRN (21:49)
[2021-08-15] MEDS ORDERED: HYDROcodone/APAP 7.5-325MG 1 EACH TAB PO PRN (02:21)
[2021-08-15] MEDS: HYDROcodone/APAP 7.5-325MG 1 EACH TAB PO PRN ×2 (03:12→09:54)
[2021-08-15] MEDS: LACTATED RINGERS 1,000 ML IV SCH (06:49)
--- NOTE | 2021-08-15 13:23 | P.DS ---
Providers Expected date of discharge: 08/15/21 Attending physician: Carlos Ricks [facility] Dis[facility] Diagnosis(es) (1) Primary osteoarthritis of right hip Current Visit: Yes Status: Acute (2) Status post right hip replacement Current Visit: Yes Status: Acute Hospital Course: This is a 71 -year-old female with a known history of degenerative arthritis of the right hip. The patient presented to the orthopedic office for evaluation and treatment. After discussion and consideration the patient elects to proceed with a total hip arthroplasty. The patient was seen preoperatively by his primary care physician and cleared for surgery. The patient was admitted to [facility] on 08/14/2021 for right total hip arthroplasty. The procedure was performed without complication or sequelae. The patient is doing well postoperatively. Labs and vital signs are stable the day of discharge. He did have some urinary retention last night. Gibson catheter will be removed today. On the day of discharge the patient's hip incision is healing well. There is minimal erythema. There is no drainage noted at this time. There is minimal soft tissue swelling to the hip and thigh. The patient has full foot and ankle motion without difficulty or pain. Neurovascular status to the right lower extremity is intact. The patient will be discharged home today in stable condition. Patient Condition at Discharge: Stable Plan - Discharge Summary Discharge Rx Participant: Yes New Discharge Prescriptions: New HYDROcodone/APAP 7.5-325MG [[place] 7.5-325] 1 - 2 tab PO Q6HR PRN #32 tab PRN Reason: Pain Aspirin 325 mg PO BID #60 tab Celecoxib [Celebrex] 200 mg PO DAILY 5 Days #5 cap Sennosides-Docusate Sodium [Senokot-S] 2 tab PO HS #60 tablet Ondansetron Odt [Zofran Odt] 4 mg PO Q8HR PRN #10 tab PRN Reason: Nausea No Action Glucosamine-Chondr 500-400Mg 1 each PO DAILY Ascorbic Acid [Vitamin C] 500 mg PO DAILY Saw [place] 160 mg PO DAILY Losartan [Cozaar] 25 mg PO DAILY Discharge Medication List Ascorbic Acid [Vitamin C] 500 mg PO DAILY 01/05/19 [History] Glucosamine-Chondr 500-400Mg 1 each PO DAILY 01/05/19 [History] Saw [place] 160 mg PO DAILY 01/05/19 [History] Losartan [Cozaar] 25 mg PO DAILY 02/06/21 [History] Aspirin 325 mg PO BID #60 tab 08/14/21 [Rx] Celecoxib [Celebrex] 200 mg PO DAILY 5 Days #5 cap 08/14/21 [Rx] HYDROcodone/APAP 7.5-325MG [[place] 7.5-325] 1 - 2 tab PO Q6HR PRN #32 tab 08/14/21 [Rx] Ondansetron Odt [Zofran Odt] 4 mg PO Q8HR PRN #10 tab 08/14/21 [Rx] Sennosides-Docusate Sodium [Senokot-S] 2 tab PO HS #60 tablet 08/14/21 [Rx] Follow up Appointment(s)/Referral(s): Antione Lew DO [Primary Care Provider] - 1 Week (office will call with appointment time) [facility] [[facility]] - As Needed Carlos Ricks DO [Doctor of Osteopathic Medicine] - 08/29/21 9:45 am Activity/Diet/Wound Care/Special Instructions: Weightbearing as tolerated with walker Keep dressing in place for 10 days unless saturated Aspirin 325 mg twice a day May shower over dressing Follow up with Dr. Carlos Ricks in 2 weeks. Call [facility] with questions or concerns, Discharge Disposition: HOME SELF-CARE
[2021-08-15 14:36] VITALS: BP 111/76; PULSE 72; RESP 16; TEMP 98
== END 2021-08-15 14:52 | disposition home or self-care (01) ==
LOC: OR 11:30 → 4SSUR 15:59 → OR 08-15 14:52
PROVIDERS: ATTEND Orthopaedic Surgery
DX: M16.11 Unilateral primary osteoarthritis, right hip (principal); I10 Essential (primary) hypertension; R33.9 Retention of urine, unspecified; Z79.899 Other long term (current) drug therapy; Z88.4 Allergy status to anesthetic agent; Z96.611 Presence of right artificial shoulder joint; Z97.3 Presence of spectacles and contact lenses; Z96.642 Presence of left artificial hip joint; Z87.891 Personal history of nicotine dependence
CPT/HCPCS: 97161; 97165; 86900; 86901; 86850; 88300; 73501; 27130; C1776; J2250; J1100; J0690 ×3; J2405; J2795; J1170